=== PATIENT | male | born 1995 | race Two or more races ===

== ENCOUNTER 2016-12-22 08:29 | Emergency (ER) | payer SELFPAY ==
[~2016-12-22] VITALS: Ht 182.9 cm; Wt 90.7 kg
== END 2016-12-22 13:13 | disposition expired ==
LOC: ER 08:29 → EDBD 08:29 → ER 13:13
DX: I46.9 Cardiac arrest, cause unspecified (principal); F11.20 Opioid dependence, uncomplicated
CPT/HCPCS: 82962; 92950